=== PATIENT | male | born 1950 ===

== ENCOUNTER 2021-08-27 05:55 | Inpatient (IN) | payer OTHER ==
[~2021-08-27 05:55] MED LIST: FINAST PO; TAMS0.4C PO; URETRON D-S TAB1 TAB PO
== END 2021-08-28 15:43 | disposition home or self-care (01) | DRG 713 ==
LOC: CIR.AMB 05:55 → O/R 12:41 → SURH 14:25
PROVIDERS: ADMIT Urology; ATTEND Urology
PROC: 0T778DZ Dilation of Left Ureter with Intraluminal Device, Via Natural or Artificial Opening Endoscopic (ICD-10-PCS; 2021-08-27)
PROC: 0TF78ZZ Fragmentation in Left Ureter, Via Natural or Artificial Opening Endoscopic (ICD-10-PCS; 2021-08-27)
PROC: 0VB08ZZ Excision of Prostate, Via Natural or Artificial Opening Endoscopic (ICD-10-PCS; principal; 2021-08-27 07:00)
DX: N40.1 Benign prostatic hyperplasia with lower urinary tract symptoms (principal); N20.1 Calculus of ureter; N20.0 Calculus of kidney; R33.8 Other retention of urine